=== PATIENT | female | born 1945 | race Caucasian/White ===

== ENCOUNTER 2016-10-03 10:31 | Inpatient (IN) | payer OTHER, MEDICARE ==
[~2016-10-03] VITALS: Ht 157.5 cm; Wt 49.0 kg
[~2016-10-03 10:31] MED LIST: LISINOPRIL-HCT1 EAC2 PO; PAROXETINE HCL20 M1 PO; SIMVASTATIN40 M1 PO
[2016-10-03 11:35] LABS: ABSOLUTE BASOPHIL COUNT 0.1 /CUMM (0.0-0.2); ABSOLUTE EOSINOPHIL COUNT 0.1 /CUMM (0.0-0.7); ABSOLUTE GRANULOCYTE CT 3.3 /CUMM (1.4-6.5); ABSOLUTE LYMPH COUNT 1.6 /CUMM (1.2-3.4); ABSOLUTE MONOCYTE COUNT 0.4 /CUMM (0.10-0.60); BASOPHIL % 1.5 % (0.0-2.0); EOSINOPHIL % 1.8 % (0-5); GRANULOCYTE % 59.1 % (42.2-75.2); MEAN CORPUSCULAR HGB 30.3 PG (27.0-31.0); MEAN CORPUSCULAR HGB CONC 33.3 G/DL (33.0-37.0); MEAN CORPUSCULAR VOLUME 91.1 FL (81.0-99.0); PLATELET COUNT 178 /CUMM (130-400); RED BLOOD CELL CT 4.07 /CUMM (4.20-5.40); WHITE BLOOD CELL COUNT 5.5 /CUMM (4.8-10.8)
--- NOTE | 2016-10-03 11:40 | CT SCAN REPORT ---
EXAMINATION: CT HEAD WITHOUT CONTRAST CLINICAL INFORMATION: Altered mental status. COMPARISON: MRI brain dated 06/17/2016. TECHNIQUE: Contiguous axial imaging was performed from the skull base to vertex without intravenous administration of contrast. DLP: 600.71 mGy-cm FINDINGS: There is no intracranial hemorrhage. There is no evidence of acute/subacute cerebral or cerebellar infarction. There is a moderate degree of microvascular ischemic change. There is no midline shift. There is a large arachnoid cyst measuring up to 4.5 cm within the right middle cranial fossa. There is disproportionate enlargement of the ventricular system in relation to the degree of sulcal enlargement. Normal pressure hydrocephalus should be considered in the correct clinical setting. The orbits are unremarkable. The paranasal sinuses and mastoid air cells are clear. IMPRESSION: 1. No acute intracranial hemorrhage. 2. No evidence of acute/subacute cerebral or cerebellar infarction. 3. Moderate microvascular ischemic disease. 4. Disproportionate enlargement of the ventricular system in relation to the degree of sulcal enlargement suggesting the presence of normal pressure hydrocephalus. Clinical correlation is recommended.
[2016-10-03 11:56] LABS: PT 10.2 SEC (9.4-12.5); PTT 30 SEC (25-37)
--- NOTE | 2016-10-03 13:10 | ED GENERAL ADULT ---
History of Present Illness General Chief Complaint: Altered Mental Status Stated Complaint: AMS Source: patient Exam Limitations: confusion Vital Signs & Intake/Output Vital Signs & Intake/Output Vital Signs Date Time Temp Pulse Resp B/P Pulse O2 O2 Flow FiO2 Ox Delivery Rate 10/03 2030 Room Air 10/03 1644 Room Air 10/03 1625 98.3 68 18 128/82 99 Room Air 10/03 1419 98.0 60 18 136/62 100 Room Air 10/03 1254 97.9 58 18 127/59 100 Nasal 2.0L Cannula 10/03 1154 96 Room Air 10/03 1040 97.8 71 18 132/81 100 Room Air Allergies Coded Allergies: No Known Drug Allergies (10/03/16) Reconcile Medications Donepezil HCl (Donepezil HCl Odt) 10 MG TAB.RAPDIS 10 MG PO DAILY MOOD STABILITY (Reported) Lisinopril/Hydrochlorothiazide (Lisinopril-Hctz 10-12.5 MG Tab) 10 MG-12.5 MG TABLET 1 TAB PO DAILY BP (Reported) Paroxetine HCl 20 MG TABLET 1 TAB PO DAILY MENTAL HEALTH (Reported) Simvastatin (Simvastatin*) 40 MG TABLET 1 TAB PO QPM CHOLESTEROL (Reported) Triage Note: PER , PT C/O DIZZINESS WITH DIFFICULTY WALKING, WITH SLOW SPEECH. SXS STARTED 1 HOUR AGO. PER SON, PT HAD A LUMBAR PUNCTURE LAST WEEK, UNDERGOING EVALUATION FOR ALZHEIMERS OR HIGH PRESSURE HYDROCEPHALUS. PT ALERT, SPEECH SLOW, SLURRED AT TIMES. PRESSURE Triage Nurses Notes Reviewed? yes HPI: 10/03/16 1 PM 71-year-old male presents to the emergency department complaining of a aphasia altered mental status and slumping over to the side. According to the family earlier today the patient was at the [facility] and she became unresponsive and had slurred speech facial asymmetry and slumped over to the side. The symptoms lasted approximately half hour period, here in the emergency Department the symptoms have completely resolved. Now according to the family she is 100% back to baseline. She does have a history of normal pressure hydrocephalus. She status post lumbar puncture with dramatic improvement of her symptoms. She also has dementia. The onset of the symptoms was abrupt, the duration was just earlier today, the severity was significant; as her symptoms required to come to the emergency department for care. On physical examination she has a gag reflex she is awake alert and oriented 3. She has no focal weakness. Past History Travel History Traveled to [place] past 21 day No Medical History Any Pertinent Medical History? see below for history Neurological: normal pressure hydrocephalus Cardiovascular: hypertension, hyperlipidemia Psychiatric: depression Surgical History Surgical History: non-contributory Psychosocial History What is your primary language Bulgarian Tobacco Use: Current Daily Use Daily Tobacco Use Amount/Type: =< 4 Cigarettes daily ETOH Use: denies use Illicit Drug Use: denies illicit drug use Family History Hx Contributory? No Review of Systems Review of Systems Constitutional: Denies: fever. EENTM: Denies: visual changes. Respiratory: Denies: short of breath. Cardiovascular: Denies: chest pain. GI: Denies: abdominal pain. Genitourinary: Reports: no symptoms. Musculoskeletal: Reports: no symptoms. Skin: Reports: no symptoms. Neurological/Psychological: Reports: see HPI. Hematologic/Endocrine: Denies: bleeding. Physical Exam Physical Exam General Appearance: alert, awake, anxious, mild distress Head: atraumatic, normal appearance Eyes: Bilateral: normal appearance, PERRL, EOMI. Ears, Nose, Throat: normal pharynx, normal ENT inspection Neck: normal inspection, supple Respiratory: normal breath sounds, chest non-tender, no respiratory distress Cardiovascular: regular rate/rhythm Peripheral Pulses: 4+ radial (R), 4+ radial (L) Gastrointestinal: non-tender Back: decreased range of motion Extremities: pedal edema Neurologic/Psych: awake, alert, oriented x 3 Skin: intact, normal color, warm/dry Core Measures ACS in differential dx? No CVA/TIA Diagnosis: No Severe Sepsis Present: No Septic Shock Present: No Progress Differential Diagnoses I considered the following diagnoses in my evaluation of the patient: [CVA, TIA, sepsis, normal pressure hydrocephalus, intracranial bleed] Plan of Care: Orders Procedure Date/time Status Heart Healthy Diet 10/03 D Active TROPONIN LEVEL 10/03 2335 Active EKG 10/03 2335 Active THERAPIST ORDERS 10/03 2033 Complete RT: Evaluation 10/03 2030 Active TROPONIN LEVEL 10/03 1735 Complete EKG 10/03 1735 Active Vital Signs 10/03 162 Active Teach/Educate 10/03 162 Active Pain Treatment and Response 10/03 162 Active Nutritional Intake, Monitor 10/03 162 Active Isolation 10/03 162 Active Intake & Output 10/03 1624 Active Patient Care Conference 10/03 1624 Active Activity/Ambulation 10/03 1624 Active Code Status 10/03 1446 Active Lab Add-on Test 10/03 1322 Active Lab Add-on Test 10/03 1321 Active ECHOCARDIOGRAM 10/03 1321 Active TRC EVALUATION (GEN) 10/03 1317 Complete OXYGEN SETUP (GEN) 10/03 1317 Active Pathway - chart 10/03 1317 Active House Staff 10/03 1317 Active Patient Data 10/03 1317 Active Admit to inpatient 10/03 1308 Active Vital Signs 10/03 1308 Active Code Status 10/03 1308 Complete Patient Data 10/03 1242 Active THYROID STIMULATING HORMONE 10/03 1125 Complete TROPONIN LEVEL 10/03 1125 Complete FREE T4 10/03 1125 Complete VITAMIN B12 10/03 1125 Complete URINALYSIS 10/03 1053 Complete PARTIAL THROMBOPLASTIN TIME 10/03 1053 Complete PROTHROMBIN TIME 10/03 1053 Complete LACTIC ACID 10/03 1053 Complete CBC WITHOUT DIFFERENTIAL 10/03 1053 Complete BASIC METABOLIC PANEL 10/03 1053 Complete NIH Stroke Scale 10/03 1052 Active EKG 10/03 1051 Active SWALLOW EVALUATION 10/03 UNK Active PT Evaluate & Treat 10/03 UNK Active Therapeutic Activities 10/03 UNK Complete PT EVAL LOW COMPLEX 20 MIN 10/03 UNK Complete Gait Training 10/03 UNK Complete Occupational Tx Eval & Treat 10/03 UNK Active VTE Mechanical Prophylaxis 10/03 UNK Active Vital Signs 10/03 UNK Complete MISTAKE 10/03 UNK Active Telemetry/Eligibility Technician 10/03 UNK Active NIH Stroke Scale 10/03 UNK Active Intake & Output 10/03 UNK Active ELECTROENCEPHALOGRAM 10/03 UNK Active Current Medications Sig/Monica Start time Last Medication Dose Stop Time Status Admin Aspirin 81 MG DAILY 10/04 1000 AC (Aspirin) Laboratory Tests 10/03/16 1740: Troponin I < 0.01 10/03/16 1353: Lactic Acid Cancelled 10/03/16 1223: Urine Color YEL, Urine Clarity CLEAR, Urine pH 6.0, Ur Specific [place] 1.025, Urine Protein TRACE H, Urine Ketones NEG, Urine Nitrite NEG, Urine Bilirubin NEG, Urine Urobilinogen 0.2, Ur Leukocyte Esterase SMALL H, Ur Microscopic SEDIMENT EXAMINED, Urine RBC 1-3, Urine WBC RARE, Ur Epithelial Cells FEW, Urine Bacteria FEW H, Urine Hemoglobin NEG, Urine Glucose NEG 10/03/16 1125: Anion Gap 7, Estimated GFR > 60, BUN/Creatinine Ratio 10.0, Glucose 94, Lactic Acid 0.9, Calcium 9.3, Troponin I < 0.01, Vitamin B12 > 1000 H, TSH 1.480, Free T4 0.96, PT 10.2, INR 0.97, APTT 30, CBC w Diff NO MAN DIFF REQ, RBC 4.07 L, MCV 91.1, MCH 30.3, RDW 13.0, MPV 9.0, Gran % 59.1, Lymphocytes % 29.5, Monocytes % 8.1, Eosinophils % 1.8, Basophils % 1.5, Absolute Granulocytes 3.3, Absolute Lymphocytes 1.6, Absolute Monocytes 0.4, Absolute Eosinophils 0.1, Absolute Basophils 0.1, PUBS MCHC 33.3 CT scan of the head showing below- PATIENT: KAITLYN MCGRAW PRESENT AGE: 71 PATIENT ACCOUNT NO: [id number] : 46 LOCATION: [facility] ORDERING PHYSICIAN: JERRICA CINTRON DO SERVICE DATE: 10/03/16105 EXAM TYPE: CAT - CT HEAD WO IV CONTRAST EXAMINATION: CT HEAD WITHOUT CONTRAST CLINICAL INFORMATION: Altered mental status. COMPARISON: MRI brain dated 06/17/2016. TECHNIQUE: Contiguous axial imaging was performed from the skull base to vertex without intravenous administration of contrast. DLP: 600.71 mGy-cm FINDINGS: There is no intracranial hemorrhage. There is no evidence of acute/subacute cerebral or cerebellar infarction. There is a moderate degree of microvascular ischemic change. There is no midline shift. There is a large arachnoid cyst measuring up to 4.5 cm within the right middle cranial fossa. There is disproportionate enlargement of the ventricular system in relation to the degree of sulcal enlargement. Normal pressure hydrocephalus should be considered in the correct clinical setting. The orbits are unremarkable. The paranasal sinuses and mastoid air cells are clear. IMPRESSION: 1. No acute intracranial hemorrhage. 2. No evidence of acute/subacute cerebral or cerebellar infarction. 3. Moderate microvascular ischemic disease. 4. Disproportionate enlargement of the ventricular system in relation to the degree of sulcal enlargement suggesting the presence of normal pressure hydrocephalus. Clinical correlation is recommended. DICTATED BY: CHAR VELASQUEZ MD DATE/TIME DICTATED:10/03/161126 CLEANER GREASER:ADRIENNE DATE/TIME TRANSCRIBED:10/03/161126 CONFIDENTIAL, DO NOT COPY WITHOUT APPROPRIATE AUTHORIZATION. <Electronically signed in Other Vendor System> SIGNED BY: CHAR VELASQUEZ MD 10/03/16 1140 (JERRICA CINTRON DO) Initial ED EKG: NSR, nonspecific ST T wave chg Departure Departure Disposition: STILL A PATIENT Condition: Stable Clinical Impression Primary Impression: TIA (transient ischemic attack) Secondary Impressions: Normal pressure hydrocephalus Referrals: Lisa GAONA MD (PCP/Family) Departure Forms: Customer Survey General Discharge Information Comments The patient was admitted to the hospital for further care. She had a gag reflex and tolerated water. Admission Note Spoke With: RAHUL GUERRERO MD Documentation of Exam: Documentation of any treatments & extenuating circumstances including Concerns Regarding Discharge (functional status, medication knowledge or non-compliance, living conditions, etc.) that warrant an admission rather than observation: [The patient needs admission for telemetry monitoring, neuro checks every 6 hours, neurology consultation] Critical Care Note Critical Care Note Critical Care Time: 30-74 min
[2016-10-03] MEDS ORDERED: DONEPEZIL HCL O10 MG PO (13:22)
--- NOTE | 2016-10-03 13:24 | History & Physical ---
SCARLETT VILLARREAL MD 10/03/16 1324: General Information and HPI MD Statement: I have seen and personally examined KAITLYN MCGRAW and documented this H&P. The patient is a 71 year old F who presented with a patient stated chief complaint of [incoherent,can't walk,hand contractures for 30-45mins]. Source of Information: patient, family Exam Limitations: no limitations History of Present Illness: 71-year-old female with PMH of hypertension, hyperlipidemia, depression, dementia, enlarged ventricles, ?normal pressure hydrocephalus, presented for worsening neurological symptoms. She was running errand with her at the grocery store this morning, when her speech was noted to be incoherent, she wasn 't able to walk, her hands were fixed in a contracted position, with a "zombie look" staring in space. The episode lasted for about 30-45 minutes and resolved spontaneously. She did not lose consciousness and no seizure like activities noted. At baseline, she has slurred speech and gait problem (shuffling gait, usually leaning to the left), and she walks independently without cane/walker. Over the last 2 years, she has seemed more down (she is chatty prior to that), which has been attributed to dementia by Dr. Rutherford. She has been following up with Dr. Martinez for possible normal pressure hydrocephalus. She had lumbar puncture 2 weeks ago and she reportedly was walking better and more chatty, more like her prior self. We obtained request for records from Dr. Martinez office in [place]. Family still awaiting to hear back from his office whether or not they will pursue a PATTERN KEEPER shunt. The has noted that pt has had 2 episodes of urinary incontinence in the last 2 months. Currently, the pt is at her recent baseline. No focal deficits can be found on our examination. She was oriented to place, time, and person. Passed bedside swallow evaluation. Allergies/Medications Allergies: Coded Allergies: No Known Drug Allergies (10/03/16) Home Med list Donepezil HCl (Donepezil HCl Odt) 10 MG TAB.RAPDIS 10 MG PO DAILY MOOD STABILITY (Reported) Lisinopril/Hydrochlorothiazide (Lisinopril-Hctz 10-12.5 MG Tab) 10 MG-12.5 MG TABLET 1 TAB PO DAILY BP (Reported) Paroxetine HCl 20 MG TABLET 1 TAB PO DAILY MENTAL HEALTH (Reported) Simvastatin (Simvastatin*) 40 MG TABLET 1 TAB PO QPM CHOLESTEROL (Reported) Past History Travel History Traveled to [place] past 21 day No Medical History Cardiovascular: hypertension, hyperlipidemia Psychiatric: depression Surgical History Surgical History: non-contributory Past Family/Social History Psychosocial History Where do you live? Home Who Do You Live With? spouse ETOH Use: denies use Illicit Drug Use: denies illicit drug use Functional Ability Ambulation: independent Review of Systems Review of Systems Constitutional: Denies: chills, fever. EENTM: Denies: visual changes. Cardiovascular: Denies: chest pain, palpitations. Respiratory: Denies: cough, short of breath. GI: Denies: abdominal pain, constipation, diarrhea. Genitourinary: Denies: dysuria. Exam & Diagnostic Data Last 24 Hrs of Vital Signs/I&O Vital Signs Date Time Temp Pulse Resp B/P Pulse O2 O2 Flow FiO2 Ox Delivery Rate 10/03 1419 98.0 60 18 136/62 100 Room Air 10/03 1254 97.9 58 18 127/59 100 Room Air 10/03 1154 96 Room Air 10/03 1040 97.8 71 18 132/81 100 Room Air Intake & Output 10/03 1600 10/03 0800 10/03 0000 Intake Total Output Total Balance Patient 79.7 kg Weight Physical Exam General Appearance Alert, Oriented X3, Cooperative, No Acute Distress Skin No Significant Lesion HEENT Atraumatic, EOMI, Mucous Membr. moist/pink, pupils equally round and reactive Neck Supple, No JVD, +2 Carotid Pulse wo Bruit Cardiovascular Regular Rate, Normal S1, Normal S2, No Murmurs, Gallops, Rubs Lungs Clear to Auscultation, Normal Air Movement Abdomen Normal Bowel Sounds, Soft, No Tenderness Neurological Normal Speech, Normal Tone, Sensation Intact, Cranial Nerves 3-12 NL, strength 4/5 all 4 limbs Extremities No Edema, Normal Pulses Last 24 Hrs of Labs/Rodo: Laboratory Tests 10/03/16 1353: Lactic Acid Cancelled 10/03/16 1223: Urine Color YEL, Urine Clarity CLEAR, Urine pH 6.0, Ur Specific [place] 1.025, Urine Protein TRACE H, Urine Ketones NEG, Urine Nitrite NEG, Urine Bilirubin NEG, Urine Urobilinogen 0.2, Ur Leukocyte Esterase SMALL H, Ur Microscopic SEDIMENT EXAMINED, Urine RBC 1-3, Urine WBC RARE, Ur Epithelial Cells FEW, Urine Bacteria FEW H, Urine Hemoglobin NEG, Urine Glucose NEG 10/03/16 1125: Anion Gap 7, Estimated GFR > 60, BUN/Creatinine Ratio 10.0, Glucose 94, Lactic Acid 0.9, Calcium 9.3, Troponin I < 0.01, Vitamin B12 > 1000 H, TSH 1.480, Free T4 0.96, PT 10.2, INR 0.97, APTT 30, CBC w Diff NO MAN DIFF REQ, RBC 4.07 L, MCV 91.1, MCH 30.3, RDW 13.0, MPV 9.0, Gran % 59.1, Lymphocytes % 29.5, Monocytes % 8.1, Eosinophils % 1.8, Basophils % 1.5, Absolute Granulocytes 3.3, Absolute Lymphocytes 1.6, Absolute Monocytes 0.4, Absolute Eosinophils 0.1, Absolute Basophils 0.1, PUBS MCHC 33.3 Diagnostic Data EKG Results NSR 59. QTc 452. T wave flattening v3 and v4 Other Results 1. No acute intracranial hemorrhage. 2. No evidence of acute/subacute cerebral or cerebellar infarction. 3. Moderate microvascular ischemic disease. 4. Disproportionate enlargement of the ventricular system in relation to the degree of sulcal enlargement suggesting the presence of normal pressure hydrocephalus. Clinical correlation is recommended. Assessment/Plan Assessment: 71-year-old female with PMH of hypertension, hyperlipidemia, depression, dementia, enlarged ventricles, ?normal pressure hydrocephalus, presented for worsening neurological symptoms (incoherent speech, wasn't able to walk, her hands were fixed in a contracted position, with staring in space, lasting 30-45 minutes and resolved spontaneously), currently at baseline without focal neurological findings. CT revealed no hemorrhage/acute infarct and had findings suggestive of NPH. # Possible TIA vs NPH - Requested records from Dr. Martinez's office - CT: No acute intracranial hemorrhage. No evidence of acute/subacute cerebral or cerebellar infarction. Moderate microvascular ischemic disease. Disproportionate enlargement of the ventricular system in relation to the degree of sulcal enlargement suggesting the presence of normal pressure hydrocephalus. Clinical correlation is recommended. - Carotid: Occluded left internal carotid artery and findings on the right consistent with a 50-79% diameter reduction involving the proximal right internal carotid artery. - MRI: There is high signal on the diffusion-weighted images which is isointense on the ADC map involving the left temporal lobe, and without significant mass effect, suggesting subacute ischemia in this locale. Dilatation of the lateral and third ventricles slightly out of proportion to the sulcal prominence is stable with respect to 06/17/2016 as is the T2 prolongation along the lateral ventricular margins. Stable right middle cranial fossa arachnoid cyst with surrounding gliotic change in the right temporal lobe. 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 * Admitted to telemetry * Carotid US * MRI head * EEG * Echo * Neuro consult * Cardio consult * Vascular surgery consult. I spoke to Dr. Abdalla over the phone, she recommended getting CTA of the neck and update her at [phone]. * Serial EKG and trop * Aspirin started * Atorvastatin 80 mg started (was on home simvastatin 40) * Contact daughterLisa, to update # Continue home meds Lisinopril 10 HCTZ 12.5 Paroxetine 20 Donepezil Diet: heart healthy DVT ppx: mech and pharm FULL CODE As Ranked By This Provider Problem List: 1. TIA (transient ischemic attack) Core Measures/Miscellaneous Acute Coronary Syndrome ACS Diagnosis: No Cerebrovascular Accident CVA/TIA Diagnosis: Yes NIH Stroke Scale: Total 0 Date Last Known Well: 10/03/16 Time Last Known Well: 929 Neurological S/S of CVA: Difficulty Speaking, Doesn't Walk, Incoherent Speech Symptom Start Date: 10/03/16 Symptom Start Time: 929 Reason tPA not ordered Medical Contraindication Bedside Swallow Eval Done: Yes Result of Evaluation: Pass Days in Hospital: 1 Antithrombotic: Yes AFIB: No Aflutter: No Anticoagulant: Yes Evidence of Atherosclerosis: Yes LDL Assessed Within 24 Hours: Yes Currently on Statin: Yes Rehab Needs Assessed: Medical Eval for Rehab PT Consult Ordered: Yes Congestive Heart Failure CHF Diagnosis: No Venous Thromboembolism VTE Risk Factors: Acute medical illness, Age > 40 No [facility] VTE prophylaxis d/t: No contraindications No VTE Pharm Prophylaxis d/t: No contraindications VTE Diagnosis: No VTE Type: NONE VTE Confirmed by (Test): NONE Severe Sepsis Severe Sepsis Present: No Septic Shock Septic Shock Present: No Miscellaneous Documentation Attending Case Discussed With: RAHUL GUERRERO MD Primary Care Physician: JIMENEZ ORTIZ,MRizwan KRANTHI Patient sees these Specialists Dr Martinez neurology Level of Patient Care: Telemetry YOLANDA ORTIZWILIAMDREAD 10/03/16 1530: Attending MD Review Statement Attending Statement Attending MD Statement: examined this patient, discuss w/resident/PA/CONTROL TECHNICIAN, agreed w/resident/PA/CONTROL TECHNICIAN, reviewed EMR data (avail) Attending Assessment/Plan: 71F PMH HTN, HLD, normal pressure hydrocephalus s/p serial LPs presenting with 30 minute episode of aphasia, muscle contracture, and confusion. Patient is back to baseline currently. Poor memory of incident. No similar prior incidents. Neurological exam unremarkable. Plan - Admit to telemetry - Neurology consult - MRI head - EEG - ASA and statin - Carotid doppler - Echocardiogram - Continue home medications - Cardiology consult (T-wave inversions on EKG, new, but last EKG was from 2003) - DVT PPx RIGO CONWAY 10/03/16 1746: Resident Review Statement Resident Statement: examined this patient, discussed with internal medicine nurse, agreed with internal medicine nurse, discussed with family, reviewed images Other Findings: This is a 71-year-old lady with past medical history significant for normal pressure hydrocephalus,hyperlipidemia, hypertension, Alzheimer's dementia who was brought to the hospital after having an episode of altered mental status earlier today around 9-10:30 AM. Of note family who are present at bedside mention that patient has problem with balance and slurred speech at baseline. Please see above for more details. VS: T: 97.8 [place]:71 RR: 18 BP: 132/81 O2 sat 100% Room Air PH/EX: AAOx2(Person and place but not time), NAD HEENT: NCAT, EOMI, PERRLA, NL fundoscopy, no nystagmus, uvula midline, tongue midline. Neck: Supple, no JVD, no carotid bruits. CV: RRR, no murmur. Lungs: CTAL. Abd: Soft, Nl BS, NT , ND. Ext: No edema, pulse and reflexes NL any symm. Neuro: CN 3-12 intact, finger to nose intact. Tone, strenght and reflexes intact. Passed bedside swallow eval. Availables and Dx data reviewed. CT: Neg MRI: Left temporal lobe infarct. Carotid doppler:Occluded left internal carotid artery and findings on the right consistent with a 50-79% diameter reduction involving the proximal right internal carotid artery. EKG: NSR 59. T wave inversion v3-v6. Problem list: #Acute CVA #H/O NPH #Abnl EKG Plan: * ekg monitor tech * Orthostatics and vitals * EEG * R/o ACS w/troponin and EKG * Echo * TSH, Vit B12, lipid panel. * Will start the patient on ASA and high dose statin * Will hold [employer] antihypertensives for permessive HTN. If BP drops below sys 130s -140s consider IV fluid Tx to maitain BP * Vascular consult regarding carotid doppler findings * Cardio and neuro consult * Formal swallow evaluation test * PT/OT/Speech Tx * DVT PPX: SC heparin * Full code * Patient is pain free at the moment. If develops any pain would evaluate and start approprite pain management medication.
--- NOTE | 2016-10-03 15:33 | Admission Certification ---
Admission Certification Certification Statement - As attending physician, I certify that at the time of - admission, based on clinical presentation, severity of - symptoms, need for further diagnostic testing and - therapeutic interventions, and risk of adverse outcomes - without in-hospital treatment, in my clinical assessment, - this patient requires an acute hospital stay for a minimum - of two nights or longer. I have also considered psychsocial - factors such as support system, advanced age, financial - issues, cognitive issues, and failed out-patient treatments, - past re-admission history, safety of patient, and lack of - compliance as applicable. Specific rationale supporting this admission is: Stroke vs seizure in a patient with normal pressure hydrocephalus
--- NOTE | 2016-10-03 16:16 | ULTRASOUND REPORT ---
EXAMINATION: DUPLEX BILATERAL CAROTID ULTRASOUND CLINICAL INFORMATION: Altered mental status with dysphasia and difficulty walking. COMPARISON: None. TECHNIQUE: Duplex bilateral carotid US was performed using real-time ultrasound and Doppler techniques (integrating B-mode 2D vascular images, Doppler spectral analysis and color flow Doppler imaging). These techniques were utilized to interrogate the extracranial carotid and vertebral arteries bilaterally. The degree of stenosis is based off criteria similar to NASCET. FINDINGS: 1. On the right: There is a hemodynamically significant stenosis correlating to 50-79% diameter reduction of the proximal internal carotid artery. A moderate amount of hyperechoic plaque is noted at the bifurcation extending into the proximal internal carotid artery. The peak systolic and diastolic velocities as measured within the proximal internal carotid artery equals 267 and 31.4 cm/s respectively. The vertebral artery is patent demonstrating antegrade flow. The right ECA demonstrates a severe stenosis with peak systolic velocity of 382 cm/s. 2. On the left: There is what appears to be complete occlusion of the internal carotid artery as no flow is detected. A large amount of hyperechoic plaque is noted at the bifurcation extending into the proximal internal carotid artery.. The vertebral artery is patent demonstrating antegrade flow. The left ECA demonstrates a marked stenosis with peak systolic velocity of under 291 cm/s. IMPRESSION: Occluded left internal carotid artery and findings on the right consistent with a 50-79% diameter reduction involving the proximal right internal carotid artery. This critical result was discussed with Dr. Brandon Roberts at 4:10 PM on the day the exam and it was ascertained that the content and urgency of the report was understood at the time of direct communication.
[2016-10-03 16:25] VITALS: BP 128/82
--- NOTE | 2016-10-03 16:40 | MRI REPORT ---
EXAMINATION: MR BRAIN WITHOUT CONTRAST CLINICAL INFORMATION: Hypertension. Hyperlipidemia. COMPARISON: Head CT from 10/03/2016. MRI of the brain from 06/17/2016. TECHNIQUE: MRI of the brain without contrast was obtained using routine sequences. FINDINGS: The images are quite motion degraded. There is platelike high signal with faint associated T2 prolongation involving the left temporal lobe cortex (see for example series 4 images 54 through 56). This appears fairly isointense on the ADC map. There is no significant mass effect. There is no susceptibility artifact on the gradient recalled echo sequence to suggest acute or chronic blood products. There is prominence of the lateral and third ventricles, which is similar in comparison to 06/17/2016. For example the transverse dimension of the anterior third ventricle measures 1.3 cm, unchanged. There is mild to moderate T2 prolongation in the periventricular white matter surrounding both lateral ventricles, also stable. There is some patchy right parasagittal pontine T2 prolongation, also stable. A large CSF signal structure within the right middle cranial fossa is redemonstrated measuring 4.2 x 4.0 cm compatible with an arachnoid cyst. There is surrounding T2 prolongation in the right temporal white matter compatible with gliotic change and stable. No extra-axial collections along the convexities. No shift of the normally midline structures. There is chronic loss of the left internal carotid artery flow-void. Otherwise the major intracranial flow voids appear preserved. The craniocervical junction and supersellar region appear unremarkable. Marrow signal is preserved. No upper cervical adenopathy. Mild mucosal thickening in the ethmoid air cells. IMPRESSION: There is high signal on the diffusion-weighted images which is isointense on the ADC map involving the left temporal lobe, and without significant mass effect, suggesting subacute ischemia in this locale. Dilatation of the lateral and third ventricles slightly out of proportion to the sulcal prominence is stable with respect to 06/17/2016 as is the T2 prolongation along the lateral ventricular margins. Stable right middle cranial fossa arachnoid cyst with surrounding gliotic change in the right temporal lobe. 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
--- NOTE | 2016-10-03 17:12 | Cons- Neurology ---
General Information and HPI Consulting Request Date of Consult: 10/03/16 Requested By: RAHUL GUERRERO MD Reason for Consult: Sudden alteration in mental status Source of Information: family, resident physician Exam Limitations: unable to give history, dementia History of Present Illness: 71-year-old woman with no known history of stroke or TIA but with dementia reportedly of Alzheimer's type plus normal pressure hydrocephalus was shopping with her this morning. Sudden blank stare, eyes remained open, not responding verbally. No diaphoresis or pallor, no tremor or seizure activity. No obvious focal signs although according to the she needed assistance walking and may been favoring the right leg. Duration was overall about half an hour. Significant improvement in mental status about 2 weeks ago on lumbar puncture at associated [facility]ists in [place]. The patient cannot give useful information about today's event for her medical history in general due to her dementia Allergies/Medications Allergies: Coded Allergies: No Known Drug Allergies (10/03/16) Home Med List: Donepezil HCl (Donepezil HCl Odt) 10 MG TAB.RAPDIS 10 MG PO DAILY MOOD STABILITY (Reported) Lisinopril/Hydrochlorothiazide (Lisinopril-Hctz 10-12.5 MG Tab) 10 MG-12.5 MG TABLET 1 TAB PO DAILY BP (Reported) Paroxetine HCl 20 MG TABLET 1 TAB PO DAILY MENTAL HEALTH (Reported) Simvastatin (Simvastatin*) 40 MG TABLET 1 TAB PO QPM CHOLESTEROL (Reported) Current Medications: Current Medications Sig/Monica Start time Last Medication Dose Route Stop Time Status Admin Aspirin 0 .STK-MED ONE 10/03 1423 DC PO Aspirin 325 MG DAILY 10/03 1400 AC 10/03 PO 1427 Atorvastatin Calcium 80 MG 1700 10/03 1700 AC PO Donepezil HCl 10 MG DAILY 10/03 1422 AC PO Hydrochlorothiazide 12.5 MG DAILY 10/03 1424 AC PO Lisinopril 10 MG DAILY 10/03 1423 AC PO Paroxetine HCl 20 MG DAILY 10/03 1423 AC PO Review of Systems Review of Systems: Limited due to her dementia, she denied headache chest pain or shortness of breath. She denied problems with vision. Could not complete full 12 system ROS Past History Travel History Traveled to [place] past 21 day No Medical History Blood Transfusion Hx: No Cardiovascular: hypertension, hyperlipidemia Psychiatric: depression Surgical History Surgical History: non-contributory Psychosocial History Where Do You Live? Home Who Do You Live With? spouse Smoking Status: Current Everyday Smoker ETOH Use: denies use Illicit Drug Use: denies illicit drug use Functional Ability Ambulation: independent Exam & Diagnostic Data Vital Signs and I&O Vital Signs Date Time Temp Pulse Resp B/P Pulse O2 O2 Flow FiO2 Ox Delivery Rate 10/03 1644 Room Air 10/03 1625 98.3 68 18 128/82 99 Room Air 10/03 1419 98.0 60 18 136/62 100 Room Air 10/03 1254 97.9 58 18 127/59 100 Nasal 2.0L Cannula 10/03 1154 96 Room Air 10/03 1040 97.8 71 18 132/81 100 Room Air Intake & Output 10/03 1600 10/03 0800 10/03 0000 Intake Total Output Total Balance Patient 176 lb Weight Physical Exam: On exam the patient appeared generally well and in no distress. No carotid bruits and no cardiac murmur. No peripheral edema Mental status: Awake, somewhat slow to respond to questions, sometimes needed to repeat. Oriented to name and [place]. Able to name one president. Names 2 of 3 simple objects,called a laboy a lock Funduscopic non-cooperative Visual burk full to finger count, Eye movements full without nystagmus, pupils midsize equal round and reactive to light. Facial movement normal bilaterally Facial sensation normal bilaterally Hearing may be reduced, needed to repeat questions Uvula elevates midline Tongue protrusion is midline Shoulder shrug symmetric Motor Strong bilaterally, no drift, leg movement symmetric and grossly normal Tone normal in the upper extremities Sensation intact to primary modes Tendon reflexes normal and symmetric without pathologic signs Coordination no gross ataxia Gait [testing deferred][normal] Last 48 Hours of Lab Results: Laboratory Tests 10/03 10/03 1353 1223 Chemistry Lactic Acid Cancelled Urines Urine Color (YEL,AMB,STR) YEL Urine Clarity (CLEAR) CLEAR Urine pH (5.0 - 8.0) 6.0 Ur Specific [place] (1.001 - 1.035) 1.025 Urine Protein (NEG,<30 MG/DL) TRACE H Urine Ketones (NEG) NEG Urine Nitrite (NEG) NEG Urine Bilirubin (NEG) NEG Urine Urobilinogen (0.1 - 1.0 EU/dl) 0.2 Ur Leukocyte Esterase (NEG) SMALL H Ur Microscopic SEDIMENT EXAMINED Urine RBC (0 - 5 /HPF) 1-3 Urine WBC (0 - 2 /HPF) RARE Ur Epithelial Cells (NONE,FEW) FEW Urine Bacteria (NEG/NONE) FEW H Urine Hemoglobin (NEG) NEG Urine Glucose (N MG/DL) NEG 10/03 1125 Chemistry Sodium (137 - 145 mmol/L) 139 Potassium (3.5 - 5.1 mmol/L) 3.7 Chloride (98 - 107 mmol/L) 99 Carbon Dioxide (22 - 30 mmol/L) 34 H Anion Gap (5 - 16) 7 BUN (7 - 17 mg/dL) 9 Creatinine (0.5 - 1.0 mg/dL) 0.9 Estimated GFR (>60 ml/min) > 60 BUN/Creatinine Ratio (7 - 25 %) 10.0 Glucose (65 - 99 mg/dL) 94 Lactic Acid (0.7 - 2.1 mmol/L) 0.9 Calcium (8.4 - 10.2 mg/dL) 9.3 Troponin I (< 0.11 ng/ml) < 0.01 Vitamin B12 (239 - 931 pg/mL) > 1000 H TSH (0.270 - 4.200 uIU/mL) 1.480 Free T4 (0.78 - 2.44 ng/dL) 0.96 Coagulation PT (9.4 - 12.5 SEC) 10.2 INR (0.90 - 1.19) 0.97 APTT (25 - 37 SEC) 30 Hematology CBC w Diff NO MAN DIFF REQ WBC (4.8 - 10.8 /CUMM) 5.5 RBC (4.20 - 5.40 /CUMM) 4.07 L Hgb (12.0 - 16.0 G/DL) 12.3 Hct (37 - 47 %) 37.0 MCV (81.0 - 99.0 FL) 91.1 MCH (27.0 - 31.0 PG) 30.3 RDW (11.5 - 14.5 %) 13.0 Plt Count (130 - 400 /CUMM) 178 MPV (7.4 - 10.4 FL) 9.0 Gran % (42.2 - 75.2 %) 59.1 Lymphocytes % (20.5 - 51.1 %) 29.5 Monocytes % (1.7 - 9.3 %) 8.1 Eosinophils % (0 - 5 %) 1.8 Basophils % (0.0 - 2.0 %) 1.5 Absolute Granulocytes (1.4 - 6.5 /CUMM) 3.3 Absolute Lymphocytes (1.2 - 3.4 /CUMM) 1.6 Absolute Monocytes (0.10 - 0.60 /CUMM) 0.4 Absolute Eosinophils (0.0 - 0.7 /CUMM) 0.1 Absolute Basophils (0.0 - 0.2 /CUMM) 0.1 PUBS MCHC (33.0 - 37.0 G/DL) 33.3 Imaging/Other Studies: dopplers: FINDINGS: 1. On the right: There is a hemodynamically significant stenosis correlating to 50-79% diameter reduction of the proximal internal carotid artery. A moderate amount of hyperechoic plaque is noted at the bifurcation extending into the proximal internal carotid artery. The peak systolic and diastolic velocities as measured within the proximal internal carotid artery equals 267 and 31.4 cm/s respectively. The vertebral artery is patent demonstrating antegrade flow. The right ECA demonstrates a severe stenosis with peak systolic velocity of 382 cm/s. 2. On the left: There is what appears to be complete occlusion of the internal carotid artery as no flow is detected. A large amount of hyperechoic plaque is noted at the bifurcation extending into the proximal internal carotid artery.. The vertebral artery is patent demonstrating antegrade flow. The left ECA demonstrates a marked stenosis with peak systolic velocity of under 291 cm/s. MRI: There is high signal on the diffusion-weighted images which is isointense on the ADC map involving the left temporal lobe, and without significant mass effect, suggesting subacute ischemia in this locale. Dilatation of the lateral and third ventricles slightly out of proportion to the sulcal prominence is stable with respect to 06/17/2016 as is the T2 prolongation along the lateral ventricular margins. Stable right middle cranial fossa arachnoid cyst with surrounding gliotic change in the right temporal lobe. Assessment/Plan Assessment: Stroke, resolution of most clinical symptoms within 30 minutes or so but persisting zone of diffusion signal change in the left temporal lobe on MRI and occlusion of the left ICA. Non-critical stenosis of the right ICA Normal pressure hydrocephalus which responded to lumbar puncture 2 weeks ago, mental status reportedly improved significantly. Unclear to what degree this is responsible for her apparent dementia versus a degenerative condition such as Alzheimer's Arachnoid cyst, incidental finding. Recommendations: Echocardiogram, rule out potential source of embolism into the left internal carotid Add aspirin 81 MG EC daily Increase atorvastatin to 80 mg daily Blood pressure running in the upper 120s and 130s systolic, avoid any further drop in BP, may need fluid support Usual stroke protocol, swallowing evaluation, stroke education, gradual increase in activity. Contact Dr. Martinez the patient's own neurologist to coordinate further treatment of her hydrocephalus. A [employer] ATTENDANT shunt is indicated but should probably be postponed 4 to 6 weeks after the acute stroke Consult Acknowledgment - Thank you for your consult request.
--- NOTE | 2016-10-03 18:30 | PN- Student ---
Subjective Subjective: The following note's purpose is to establish a record of the latest Lumbar Puncture procedure findings that were obtained from Ms. Faith Horton. The procedure was perfomed and the CSF was collected at 12:00 AM & 7:00 AM on September 20, 2016. The findings were verified by Dr. Andreas Martinez and the report was done without any complications. Objective Results Results: CSF Analysis (Results from 12:00 AM collection in 09/20/2016): Point of insertion: Spinal needle was inserted into the L4/L5 space. Opening Pressure: 120 mmH2O Color: Colorless Appearance: Clear WBC Count: 1 cells/uL RBC Count: 1 cells/uL Neutrophil %: TNP Glucose, CSF: 71 mg/dL Protein, Total, CSF: 96 mg/dL (Increased; Reference value 15-60) CSF Analysis (Results from 7:00 AM collection in 09/20/2016): Point of insertion: Spinal needle was inserted into the L4/L5 space. Opening Pressure: 120 mmH2O Color: Colorless Appearance: Clear WBC Count: 0 cells/uL RBC Count: 131 cells/uL (Increased; Reference value 0-10) Neutrophil %: TNP Glucose, CSF: 71 mg/dL Protein, Total, CSF: 96 mg/dL (Increased; Reference value 15-60)
--- NOTE | 2016-10-03 19:39 | Cons- Cardiology ---
General Information and HPI Consulting Request Date of Consult: 10/03/16 Requested By: RAHUL GUERRERO MD Reason for Consult: Possible TIA History of Present Illness: The patient is a 71-year-old female with history of hypertension, hyperlipidemia , depression, dementia, possible normal pressure hydrocephalus. She presents with worsening neurologic symptoms. She was running an errand with her at the grocery store in the morning when her speech was noted to be incoherent. She was not able to walk. Her hands were fixed in a contracted position. She was noted to be staring off into space. The episode lasted approximately 30-40 minutes before resolving spontaneously. She didn't lose consciousness. She had no obvious seizure activity. At baseline she has slurred speech and a gait difficulty. She walks independently without a cane or walker. She has had no chest pain. No shortness of breath. No palpitations. The patient does not recall why she is in the hospital. No syncope. No lightheadedness or dizziness. No nausea or vomiting. No diaphoresis. The patient is being considered for possible MERCHANDISING REPRESENTATIVE shunt. Allergies/Medications Allergies: Coded Allergies: No Known Drug Allergies (10/03/16) Home Med List: Donepezil HCl (Donepezil HCl Odt) 10 MG TAB.RAPDIS 10 MG PO DAILY MOOD STABILITY (Reported) Lisinopril/Hydrochlorothiazide (Lisinopril-Hctz 10-12.5 MG Tab) 10 MG-12.5 MG TABLET 1 TAB PO DAILY BP (Reported) Paroxetine HCl 20 MG TABLET 1 TAB PO DAILY MENTAL HEALTH (Reported) Simvastatin (Simvastatin*) 40 MG TABLET 1 TAB PO QPM CHOLESTEROL (Reported) Current Medications: Current Medications Sig/Monica Start time Last Medication Dose Route Stop Time Status Admin Aspirin 81 MG DAILY 10/04 1000 AC PO Aspirin 0 .STK-MED ONE 10/03 1423 DC PO Aspirin 325 MG DAILY 10/03 1400 DC 10/03 PO 1427 Atorvastatin Calcium 80 MG 1700 10/03 1700 AC 10/03 PO 1751 Donepezil HCl 10 MG DAILY 10/03 1422 AC 10/03 PO 1751 Heparin Sodium 5,000 UNIT Q8 10/03 1745 AC 10/03 (Porcine) SC 1752 Hydrochlorothiazide 12.5 MG DAILY 10/03 1424 DC PO Lisinopril 10 MG DAILY 10/03 1423 DC PO Paroxetine HCl 20 MG DAILY 10/03 1423 AC 10/03 PO 1751 Review of Systems Review of Systems: No rash. No fever. No chills. All other systems were reviewed, and were noted to be negative. Past History Travel History Traveled to [place] past 21 day No Medical History Blood Transfusion Hx: No Cardiovascular: hypertension, hyperlipidemia Psychiatric: depression Surgical History Surgical History: non-contributory Family History Family History Reviewed? Family history was reviewed with the patient, and there are no issues contributin to the current presentation. Psychosocial History Where Do You Live? Home Who Do You Live With? spouse Smoking Status: Current Everyday Smoker ETOH Use: denies use Illicit Drug Use: denies illicit drug use Functional Ability Ambulation: independent Exam & Diagnostic Data Vital Signs and I&O Vital Signs Date Time Temp Pulse Resp B/P Pulse O2 O2 Flow FiO2 Ox Delivery Rate 10/03 1644 Room Air 10/03 1625 98.3 68 18 128/82 99 Room Air 10/03 1419 98.0 60 18 136/62 100 Room Air 10/03 1254 97.9 58 18 127/59 100 Nasal 2.0L Cannula 10/03 1154 96 Room Air 10/03 1040 97.8 71 18 132/81 100 Room Air Intake & Output 10/03 1600 10/03 0800 10/03 0000 10/02 1600 10/02 0800 10/02 0000 Intake Total Output Total Balance Patient 176 lb Weight Physical Exam: Gen: The patient is in no acute distress HEENT: Normal nose, ears, and oropharynx. Pupils equal bilaterally. Conjunctiva normal. Neck: Supple with no JVD, no masses, and no thyromegaly Lungs: Clear to auscultation with normal respiratory effort Heart: RRR, S1, S2, no murmurs. No peripheral edema, 2+ pulses in the lower extremities bilaterally Abdomen: Soft, nontender, no masses. No hepatomegaly. No splenomegaly Extremities: No clubbing or cyanosis. Normal muscle strength in the upper and lower extremities Skin: Normal skin turgor with no skin ulcers or lesions noted. Neuro: Cranial nerves intact. Sensation intact Psych: Alert and oriented 3 with depressed affect Labs/Rodo Results: Laboratory Tests 10/03 10/03 10/03 1740 1353 1223 Chemistry Lactic Acid Cancelled Troponin I (< 0.11 ng/ml) < 0.01 Urines Urine Color (YEL,AMB,STR) YEL Urine Clarity (CLEAR) CLEAR Urine pH (5.0 - 8.0) 6.0 Ur Specific [place] (1.001 - 1.035) 1.025 Urine Protein (NEG,<30 MG/DL) TRACE H Urine Ketones (NEG) NEG Urine Nitrite (NEG) NEG Urine Bilirubin (NEG) NEG Urine Urobilinogen (0.1 - 1.0 EU/dl) 0.2 Ur Leukocyte Esterase (NEG) SMALL H Ur Microscopic SEDIMENT EXAMINED Urine RBC (0 - 5 /HPF) 1-3 Urine WBC (0 - 2 /HPF) RARE Ur Epithelial Cells (NONE,FEW) FEW Urine Bacteria (NEG/NONE) FEW H Urine Hemoglobin (NEG) NEG Urine Glucose (N MG/DL) NEG 10/03 1125 Chemistry Sodium (137 - 145 mmol/L) 139 Potassium (3.5 - 5.1 mmol/L) 3.7 Chloride (98 - 107 mmol/L) 99 Carbon Dioxide (22 - 30 mmol/L) 34 H Anion Gap (5 - 16) 7 BUN (7 - 17 mg/dL) 9 Creatinine (0.5 - 1.0 mg/dL) 0.9 Estimated GFR (>60 ml/min) > 60 BUN/Creatinine Ratio (7 - 25 %) 10.0 Glucose (65 - 99 mg/dL) 94 Lactic Acid (0.7 - 2.1 mmol/L) 0.9 Calcium (8.4 - 10.2 mg/dL) 9.3 Troponin I (< 0.11 ng/ml) < 0.01 Vitamin B12 (239 - 931 pg/mL) > 1000 H TSH (0.270 - 4.200 uIU/mL) 1.480 Free T4 (0.78 - 2.44 ng/dL) 0.96 Coagulation PT (9.4 - 12.5 SEC) 10.2 INR (0.90 - 1.19) 0.97 APTT (25 - 37 SEC) 30 Hematology CBC w Diff NO MAN DIFF REQ WBC (4.8 - 10.8 /CUMM) 5.5 RBC (4.20 - 5.40 /CUMM) 4.07 L Hgb (12.0 - 16.0 G/DL) 12.3 Hct (37 - 47 %) 37.0 MCV (81.0 - 99.0 FL) 91.1 MCH (27.0 - 31.0 PG) 30.3 RDW (11.5 - 14.5 %) 13.0 Plt Count (130 - 400 /CUMM) 178 MPV (7.4 - 10.4 FL) 9.0 Gran % (42.2 - 75.2 %) 59.1 Lymphocytes % (20.5 - 51.1 %) 29.5 Monocytes % (1.7 - 9.3 %) 8.1 Eosinophils % (0 - 5 %) 1.8 Basophils % (0.0 - 2.0 %) 1.5 Absolute Granulocytes (1.4 - 6.5 /CUMM) 3.3 Absolute Lymphocytes (1.2 - 3.4 /CUMM) 1.6 Absolute Monocytes (0.10 - 0.60 /CUMM) 0.4 Absolute Eosinophils (0.0 - 0.7 /CUMM) 0.1 Absolute Basophils (0.0 - 0.2 /CUMM) 0.1 PUBS MCHC (33.0 - 37.0 G/DL) 33.3 Diagnostic Data EKG Results EKG tracing is reviewed, and reveals normal sinus rhythm at 65, nonspecific repolarization amount Other Results Cardiac Doppler study 10/03/16: Occluded left internal carotid artery and findings on the right consistent with a 50-79% diameter reduction involving the proximal right internal carotid artery. MRI head 10/03/16: There is high signal on the diffusion-weighted images which is isointense on the ADC map involving the left temporal lobe, and without significant mass effect, suggesting subacute ischemia in this locale. Dilatation of the lateral and third ventricles slightly out of proportion to the sulcal prominence is stable with respect to 06/17/2016 as is the T2 prolongation along the lateral ventricular margins. Stable right middle cranial fossa arachnoid cyst with surrounding gliotic change in the right temporal lobe. 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 CT head: 1. No acute intracranial hemorrhage. 2. No evidence of acute/subacute cerebral or cerebellar infarction. 3. Moderate microvascular ischemic disease. 4. Disproportionate enlargement of the ventricular system in relation to the degree of sulcal enlargement suggesting the presence of normal pressure hydrocephalus. Clinical correlation is recommended. Assessment/Plan Assessment/Plan Assessment: 1. Normal pressure hydrocephalus 2. Left internal carotid artery occlusion 2. Possible TIA versus stroke Plan: * Echocardiogram to rule out source of embolism * Aspirin 81 mg daily * Increase atorvastatin to 80 mg daily. * Follow neurology and basilar surgery recommendations. * Continue current dosages of lisinopril and HCTZ. Avoid overly rapid blood pressure drops Consult Acknowledgment - Thank you for your consult request.
--- NOTE | 2016-10-03 19:40 | CT SCAN REPORT ---
CT ANGIOGRAM NECK CLINICAL INFORMATION: TIA. COMPARISON: Carotid ultrasound performed earlier today. TECHNIQUE: Test bolus sequences followed by administration of 120 mL of Optiray 320 intravenous contrast. Helical imaging was performed in the axial plane of the neck. The data was processed at the imaging technologist workstation for generation of MIP sequences. Three-dimensional volume rendered reformatted images were also generated at an offline 3-D workstation. FINDINGS: There is a 3 great vessel branch configuration off of the aortic arch. There is fairly extensive atherosclerotic plaque along the periphery of the aortic arch and of the great vessel origins. There is a 60-70% stenosis involving the left subclavian artery origin secondary to soft atherosclerotic plaque. There is an irregular severe stenosis of the left axillary artery. There is likely 50% luminal narrowing of the left common carotid artery origin, limitedly assessed by artifact obscuring this area. There is a severe stenosis involving the right axillary artery. The right vertebral artery is dominant. The vertebral arteries remain widely patent throughout their course. The vertebrobasilar system remains widely patent intracranially. The right common carotid artery is widely patent. There is soft lipid rich atherosclerotic plaque at the right carotid bifurcation resulting in an approximately 60% stenosis by NASCET criteria. There is lipid rich atherosclerotic plaque along the course of the left common carotid artery resulting in 50-60% luminal narrowing of the vessel. There is extensive lipid rich atherosclerotic plaque at the left carotid bifurcation resulting in occlusion of the left internal carotid artery just beyond its origin. There is intracranial reconstitution of the left internal carotid artery, greatest at the level of the ophthalmic segment with the left [place] primarily reconstituted by the contralateral side. 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 There are severe stenoses at the origins of the left M2 middle cerebral artery branches and there is an occluded left sylvian MCA branch. There is soft tissue along the right lateral margin of the trachea at the T2 level that could reflect secretions or an intraluminal lesion for which a chest CT in 2 weeks time is recommended to document resolution. Upper lungs are clear. The thyroid gland, the parotid glands, and the semitubular glands are unremarkable. There is no cervical lymphadenopathy. Lingual tonsillar hypertrophy partially effaces the vallecula bilaterally. There is a partially imaged arachnoid cyst within the right middle cranial fossa resulting in mass effect on the right temporal pole. Remaining intracranial findings including a subacute left temporal lobe infarct are better demonstrated on today's earlier MRI. There is advanced cervical spondylosis with large disc osteophyte complexes at the C3-C4, C4-C5, and C5-C6 levels suspected to result in moderate to severe central canal stenosis at these levels. IMPRESSION: - The left internal carotid artery appears occluded just beyond its origin as noted on the recent carotid ultrasound. There is reconstitution of the intracranial left internal carotid artery, greatest at the level of the ophthalmic segment. Lipid rich atherosclerotic plaque also results in 50-60% luminal narrowing at the left common carotid artery origin and of the mid left common carotid artery. - There are severe stenoses at the origins of the left M2 middle cerebral artery branches and there is an occluded left sylvian MCA branch. - Soft lipid rich atherosclerotic plaque results in a 60% stenosis of the right carotid bulb by NASCET criteria. - There is a 60-70% stenosis involving the left subclavian artery origin secondary to soft atherosclerotic plaque. There is an irregular severe stenosis of the left axillary artery. There is also a severe stenosis involving the right axillary artery. 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 - There is a partially imaged arachnoid cyst within the right middle cranial fossa resulting in mass effect on the right temporal pole. Remaining intracranial findings including ventriculomegaly and a subacute left temporal lobe infarct are better demonstrated on today's earlier MRI. Please see that report for further details. - There is soft tissue along the right lateral margin of the trachea at the T2 level that could reflect secretions or an intraluminal lesion for which a chest CT in 2 weeks time is recommended to document resolution. If this finding does not resolve, direct visualization would be recommended. - There is advanced cervical spondylosis with large disc osteophyte complexes at the C3-C4, C4-C5, and C5-C6 levels suspected to result in moderate to severe central canal stenosis at these levels.
[2016-10-04 01:05] VITALS: BP 118/78
--- NOTE | 2016-10-04 07:20 | PN- Housestaff ---
OXANA ORTIZ,JOE 10/04/16 0720: Subjective Follow-up For: subacute ischemia of left temporal lobe Complaints: no complaints Tele-Events Since Last Visit: Normal sinus rhythm with heart rate between 65, Subjective: Recently seen and examined at the bedside. She was oriented to time, place and person. She was having tremors in his upper extremity, denies of any nausea, vomiting, headache. She was able to walk with a walker. Review of Systems Constitutional: Denies: no symptoms. EENTM: Denies: no symptoms. Cardiovascular: Denies: no symptoms. Respiratory: Denies: no symptoms. Gastrointestinal: Denies: no symptoms. Genitourinary: Denies: no symptoms. Musculoskeletal: Denies: no symptoms. Skin: Denies: no symptoms. Neurological/Psychological: Denies: no symptoms. Objective Last 24 Hrs of Vital Signs/I&O Vital Signs Date Time Temp Pulse Resp B/P Pulse O2 O2 Flow FiO2 Ox Delivery Rate 10/04 0836 97.9 66 18 126/78 99 Room Air 10/04 0105 98.5 71 18 118/78 97 Room Air 10/03 2031 Room Air 10/03 1644 Room Air 10/03 1625 98.3 68 18 128/82 99 Room Air Intake & Output 10/04 1600 10/04 0800 10/04 0000 Intake Total 1105 100 360 Output Total Balance 1105 100 360 Intake, IV 625 20 Intake, Oral 480 100 340 Number 1 Bowel Movements Patient 48.988 kg Weight Physical Exam General Appearance: Alert, Oriented X3, Cooperative Skin: No Rashes, No Breakdown HEENT: Atraumatic, PERRLA, EOMI Cardiovascular: Normal S1, Normal S2 Lungs: Clear to Auscultation, Normal Air Movement Abdomen: Soft, No Tenderness Neurological: Normal Speech, TREMORS IN BOTH UPPER EXTREMITY, WALKING WITH A WALKER Extremities: No Clubbing, No Cyanosis, No Edema Vascular: Normal Pulses, Pulses Symmetrical Current Medications: Current Medications Sig/Monica Start time Last Medication Dose Route Stop Time Status Admin Aspirin 81 MG DAILY 10/04 1000 AC 10/04 PO 0929 Aspirin 325 MG DAILY 10/03 1400 DC 10/03 PO 1427 Atorvastatin Calcium 80 MG 1700 10/03 1700 AC 10/03 PO 1751 Donepezil HCl 10 MG DAILY 10/03 1422 AC 10/04 PO 0929 Heparin Sodium 5,000 UNIT Q8 10/03 1745 AC 10/04 (Porcine) SC 1243 Hydrochlorothiazide 12.5 MG DAILY 10/03 1424 DC PO Lisinopril 10 MG DAILY 10/03 1423 DC PO Paroxetine HCl 20 MG DAILY 10/03 1423 AC 10/04 PO 0929 Sodium Chloride 1,000 ML Q8H 10/04 0945 AC 10/04 IV 10/04 1744 1005 Last 24 Hrs of Lab/Rodo Results Last 24 Hrs of Labs/Mics: Laboratory Tests 10/03/16 2305: Troponin I < 0.01 10/03/16 1740: Troponin I < 0.01, Triglycerides 251 H, Cholesterol 242 H, LDL Cholesterol, Calc 128, HDL Cholesterol 64 H, Cholesterol/HDL Ratio 4 Orders ECHO Findings: CONCLUSIONS Normal left ventricular ejection fraction visually estimated at > 60%. Normal left ventricular wall motion. Trace mitral regurgitation. Mild tricuspid regurgitation. Assessment/Plan Assessment: Patient is 71-year-old female with PMH of hypertension, hyperlipidemia, depression, dementia, enlarged ventricles ? normal pressure hydrocephalus, presented for worsening neurological symptoms. She was running errand with her at the grocery store this morning, when her speech was noted to be incoherent, she wasn't able to walk, her hands were fixed in a contracted position, with a "zombie look" staring in space. The episode lasted for about 30 -45 minutes and resolved spontaneously. She did not lose consciousness and no seizure like activities noted. Vital signs-temperature 97.9, pulse 66, respiratory rate 18, blood pressure 126/ 78, SPO2 99% on room air Plan - Subacute left temporal lobe infarct - We'll continue aspirin and atorvastatin in high doses We will follow neurologist recommendation PT/OT Hypertension We will follow cardiology consult We'll continue all home medication Diet -heart healthy diet DVT prophylaxis-heparin/ALP S CODE STATUS-full code Problem List: 1. Arachnoid cyst 2. Left temporal lobe infarction Pain Ratin Pain Location: none Pain Goal: Remain pain free Pain Plan: mild Tomorrow's Labs & Rationales: none DVT/Prophylaxis: mechanical, pharmacological RAHUL GUERRERO MD 10/04/16 1019: Attending Review Statement Attending Statement Attending MD Statement: examined this patient, discuss w/resident/PA/CONTROL ROOM SUPERVISOR, agreed w/resident/PA/CONTROL ROOM SUPERVISOR, reviewed EMR data (avail) Attending Assessment/Plan: 71F PMH HTN, HLD, normal pressure hydrocephalus s/p serial LPs presenting with 30 minute episode of aphasia, muscle contracture, and confusion. Patient is back to baseline currently. Poor memory of incident. No similar prior incidents. Unchanged today. Neuro exam still normal. Carotid doppler and CTA neck show multiple areas of stenosis with left ICA occlusion and sylvian branch occlusion. MRI head shows left temporal subacute infarction. Vitals stable, labs reviewed. Plan - Continue on telemetry - Continue to hold anti-hypertensive. Will give IV fluids to maintain BP for cerebral perfusion - Obtain vascular consult - Follow neurology recommendations - EEG - ASA 81mg and Atorvastatin 80mg - Follow up echocardiogram - Continue home medications - Cardiology consult (T-wave inversions on EKG, new, but last EKG was from 2003) - DVT PPx
--- NOTE | 2016-10-04 08:34 | ECHOCARDIOGRAM REPORT ---
KAITLYN MCGRAW Age: 71 : 1945 Gender: F Exam Date: 10/03/2016 19:43 Exam Location: [address] Ht (in): 62 Wt (lb): 175 BSA: 1.90 BP: 127 / 59 Ordering Physician: SRUTHI CONWAY, Referring Physician: Alexander Lau MD Technologist: Naina Moulton [facility] Room Number: [id number] Indications: STROKE Rhythm: Sinus Technical Quality: Good FINDINGS Left Ventricle Normal size left ventricle. Normal left ventricular wall thickness. Normal left ventricular ejection fraction visually estimated at > 60%. Normal left ventricular wall motion. Right Ventricle Normal right ventricular size and function. Right Atrium Normal right atrial size. Left Atrium Normal left atrial size. Mitral Valve Mild mitral annular calcification. Trace mitral regurgitation. Aortic Valve Diffuse thickening (sclerosis) of the aortic valve cusps without reduced excursion. No aortic stenosis. No aortic regurgitation. Tricuspid Valve Tricuspid valve not well visualized, grossly normal. Mild tricuspid regurgitation. No evidence of pulmonary hypertension. Pulmonic Valve Pulmonic valve not well visualized, grossly normal. Pericardium No pericardial effusion. Great Vessels Normal size aortic root. CONCLUSIONS Normal left ventricular ejection fraction visually estimated at > 60%. Normal left ventricular wall motion. Trace mitral regurgitation. Mild tricuspid regurgitation. Alexander Lau M.D. (Electronically Signed) Final Date: 04 October 2016 08:34 MEASUREMENTS (Male / Female) Normal Values 2D ECHO LV Diastolic Diameter PLAX 3.5 cm 4.2 - 5.9 / 3.9 - 5.3 cm LV Systolic Diameter PLAX 1.9 cm 2.1 - 4.0 cm LV Fractional Shortening PLAX 45.7 % 25 - 46 % LV Ejection Fraction 2D Teich 78.0 % IVS Diastolic Thickness 1.0 cm LVPW Diastolic Thickness 1.1 cm LV Relative Wall Thickness 0.6 RV Internal Dim ED PLAX 2.5 cm 1.9 - 3.8 cm LVOT Diameter 2.0 cm Aortic Root Diameter 2.5 cm LA Systolic Diameter LX 2.7 cm 3.0 - 4.0 / 2.7 - 3.8 cm LA Volume 12.0 cm 18 - 58 / 22 - 52 cm Ascending Aorta Diameter 2.8 cm DOPPLER AV Peak Velocity 143.0 cm/s AV Peak Gradient 8.2 mmHg AV Mean Velocity 98.1 cm/s AV Mean Gradient 4.0 mmHg AV Velocity Time Integral 35.0 cm LVOT Peak Velocity 69.2 cm/s LVOT Peak Gradient 1.9 mmHg LVOT Mean Velocity 46.8 cm/s LVOT Mean Gradient 1.0 mmHg LVOT Velocity Time Integral 20.5 cm LVOT Stroke Volume 64.4 cm AV Area Cont Eq vti 1.8 cm AV Area Cont Eq pk 1.5 cm MV Peak Velocity 79.0 cm/s MV Peak Gradient 2.5 mmHg MV Mean Velocity 40.5 cm/s MV Mean Gradient 1.0 mmHg Mitral E Point Velocity 62.2 cm/s Mitral A Point Velocity 74.5 cm/s Mitral E to A Ratio 0.8 MV PHT Velocity 63.0 cm/s MV Deceleration Angelina 191.0 cm/s MV Pressure Half Time 99.0 ms MV Area PHT 2.2 cm MV Deceleration Time 183.0 ms TR Peak Velocity 231.0 cm/s TR Peak Gradient 21.3 mmHg Right Atrial Pressure 5.0 mmHg Pulmonary Artery Systolic Pressu 26.3 mmHg Right Ventricular Systolic Press 26.3 mmHg PV Peak Velocity 79.3 cm/s PV Peak Gradient 2.5 mmHg PV Mean Velocity 55.0 cm/s PV Mean Gradient 1.0 mmHg PV Velocity Time Integral 18.5 cm LV E' Lateral Velocity 7.4 cm/s Mitral E to LV E' Lateral Ratio 8.4 LV E' Septal Velocity 6.8 cm/s Mitral E to LV E' Septal Ratio 9.1
[2016-10-04 08:36] VITALS: BP 126/78
--- NOTE | 2016-10-04 10:46 | PN- Cardiology ---
Subjective Subjective: Feeling well. No chest pain. No shortness of breath. No diaphoresis. No palpitations. Objective Vital Signs and I&Os Vital Signs Date Time Temp Pulse Resp B/P Pulse O2 O2 Flow FiO2 Ox Delivery Rate 10/04 0836 97.9 66 18 126/78 99 Room Air 10/04 0105 98.5 71 18 118/78 97 Room Air 10/03 2031 Room Air 10/03 1644 Room Air 10/03 1625 98.3 68 18 128/82 99 Room Air 10/03 1419 98.0 60 18 136/62 100 Room Air 10/03 1254 97.9 58 18 127/59 100 Nasal 2.0L Cannula 10/03 1154 96 Room Air Intake & Output 10/04 1600 10/04 0800 10/04 0000 10/03 1600 10/03 0800 10/03 0000 Intake Total 100 360 Output Total Balance 100 360 Intake, IV 20 Intake, Oral 100 340 Patient 108 lb 176 lb Weight Physical Exam: Gen: The patient is in no acute distress HEENT: Normal nose, ears, and oropharynx. Pupils equal bilaterally. Conjunctiva normal. Neck: Supple with no JVD, no masses, and no thyromegaly Lungs: Clear to auscultation with normal respiratory effort Heart: RRR, S1, S2, no murmurs. No peripheral edema, 2+ pulses in the lower extremities bilaterally Abdomen: Soft, nontender, no masses. No hepatomegaly. No splenomegaly Extremities: No clubbing or cyanosis. Normal muscle strength in the upper and lower extremities Skin: Normal skin turgor with no skin ulcers or lesions noted. Current Medications: Current Medications Sig/Monica Start time Last Medication Dose Route Stop Time Status Admin Aspirin 81 MG DAILY 10/04 1000 AC 10/04 PO 0929 Aspirin 0 .STK-MED ONE 10/03 142 DC PO Aspirin 325 MG DAILY 10/03 1400 DC 10/03 PO 1427 Atorvastatin Calcium 80 MG 1700 10/03 1700 AC 10/03 PO 1751 Donepezil HCl 10 MG DAILY 10/03 1422 AC 10/04 PO 0929 Heparin Sodium 5,000 UNIT Q8 10/03 1745 AC 10/04 (Porcine) SC 0600 Hydrochlorothiazide 12.5 MG DAILY 10/03 1424 DC PO Lisinopril 10 MG DAILY 10/03 142 DC PO Paroxetine HCl 20 MG DAILY 10/03 1423 AC 10/04 PO 0929 Sodium Chloride 1,000 ML Q8H 10/04 0945 AC 10/04 IV 10/04 1744 1005 Results Last 48 Hrs of Labs/Mics: Laboratory Tests 10/03/16 2305: Troponin I < 0.01 10/03/16 1740: Troponin I < 0.01, Triglycerides 251 H, Cholesterol 242 H, LDL Cholesterol, Calc 128, HDL Cholesterol 64 H, Cholesterol/HDL Ratio 4 10/03/16 1353: Lactic Acid Cancelled 10/03/16 1223: Urine Color YEL, Urine Clarity CLEAR, Urine pH 6.0, Ur Specific Andrews 1.025, Urine Protein TRACE H, Urine Ketones NEG, Urine Nitrite NEG, Urine Bilirubin NEG, Urine Urobilinogen 0.2, Ur Leukocyte Esterase SMALL H, Ur Microscopic SEDIMENT EXAMINED, Urine RBC 1-3, Urine WBC RARE, Ur Epithelial Cells FEW, Urine Bacteria FEW H, Urine Hemoglobin NEG, Urine Glucose NEG 10/03/16 1125: Anion Gap 7, Estimated GFR > 60, BUN/Creatinine Ratio 10.0, Glucose 94, Lactic Acid 0.9, Calcium 9.3, Troponin I < 0.01, Vitamin B12 > 1000 H, TSH 1.480, Free T4 0.96, PT 10.2, INR 0.97, APTT 30, CBC w Diff NO MAN DIFF REQ, RBC 4.07 L, MCV 91.1, MCH 30.3, RDW 13.0, MPV 9.0, Gran % 59.1, Lymphocytes % 29.5, Monocytes % 8.1, Eosinophils % 1.8, Basophils % 1.5, Absolute Granulocytes 3.3, Absolute Lymphocytes 1.6, Absolute Monocytes 0.4, Absolute Eosinophils 0.1, Absolute Basophils 0.1, PUBS MCHC 33.3 Recent Imaging Studies: CT angiogram of the neck: - The left internal carotid artery appears occluded just beyond its origin as noted on the recent carotid ultrasound. There is reconstitution of the intracranial left internal carotid artery, greatest at the level of the ophthalmic segment. Lipid rich atherosclerotic plaque also results in 50-60% luminal narrowing at the left common carotid artery origin and of the mid left common carotid artery. - There are severe stenoses at the origins of the left M2 middle cerebral artery branches and there is an occluded left sylvian MCA branch. - Soft lipid rich atherosclerotic plaque results in a 60% stenosis of the right carotid bulb by NASCET criteria. - There is a 60-70% stenosis involving the left subclavian artery origin secondary to soft atherosclerotic plaque. There is an irregular severe stenosis of the left axillary artery. There is also a severe stenosis involving the right axillary artery. 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 - There is a partially imaged arachnoid cyst within the right middle cranial fossa resulting in mass effect on the right temporal pole. Remaining intracranial findings including ventriculomegaly and a subacute left temporal lobe infarct are better demonstrated on today's earlier MRI. Please see that report for further details. - There is soft tissue along the right lateral margin of the trachea at the T2 level that could reflect secretions or an intraluminal lesion for which a chest CT in 2 weeks time is recommended to document resolution. If this finding does not resolve, direct visualization would be recommended. - There is advanced cervical spondylosis with large disc osteophyte complexes at the C3-C4, C4-C5, and C5-C6 levels suspected to result in moderate to severe central canal stenosis at these levels. Echocardiogram 10/04/16: Normal left ventricular ejection fraction visually estimated at > 60%. Normal left ventricular wall motion. Trace mitral regurgitation. Mild tricuspid regurgitation. Assessment/Plan Assessment/Plan Assessment: 1. Normal pressure hydrocephalus 2. Left internal carotid artery occlusion 3. Possible TIA versus stroke 4. No cardiac source of embolism seen on echocardiogram. 5. Hypertension, stable off medications Plan: * Keep off hypertension medications for now, and continue to monitor blood pressure * Continue atorvastatin * Continue aspirin Continue telemetry? Yes
[2016-10-04 15:30] VITALS: BP 128/78
[2016-10-05 00:45] VITALS: BP 160/92
--- NOTE | 2016-10-05 08:29 | PN- Housestaff ---
See Addendum Subjective Follow-up For: subacute ischemia of left temporal lobe Complaints: no complaints Tele-Events Since Last Visit: Normal sinus rhythm, no any overnight events Subjective: Recently seen and examined at the bedside. She was having tremors in his upper extremity, denies of any nausea, vomiting, headache. She was able to walk with a walker. Review of Systems Constitutional: Denies: no symptoms. Cardiovascular: Denies: chest pain. Respiratory: Denies: short of breath. Gastrointestinal: Denies: abdominal pain. Genitourinary: Denies: dysuria. Musculoskeletal: Denies: back pain. Objective Last 24 Hrs of Vital Signs/I&O Vital Signs Date Time Temp Pulse Resp B/P Pulse O2 O2 Flow FiO2 Ox Delivery Rate 10/05 1600 97.8 72 20 102/60 98 Room Air Intake & Output 10/06 1600 10/06 0800 10/06 0000 Intake Total 225 Output Total Balance 225 Intake, Oral 225 Physical Exam General Appearance: Alert, No Acute Distress Skin: No Rashes, No Breakdown Cardiovascular: Normal S1, Normal S2 Lungs: Clear to Auscultation, Normal Air Movement Abdomen: Soft, No Tenderness Neurological: Normal Speech Extremities: upper limb tremors Vascular: Normal Pulses, Pulses Symmetrical Assessment/Plan Assessment: Patient is 71-year-old female with PMH of hypertension, hyperlipidemia, depression, dementia, enlarged ventricles ? normal pressure hydrocephalus, presented for worsening neurological symptoms. She was running errand with her at the grocery store this morning, when her speech was noted to be incoherent, she wasn't able to walk, her hands were fixed in a contracted position, with a "zombie look" staring in space. The episode lasted for about 30 -45 minutes and resolved spontaneously. She did not lose consciousness and no seizure like activities noted. Vital signs-temperature 97.9, pulse 66, respiratory rate 18, blood pressure 126/ 78, SPO2 99% on room air Plan - Discharge today. Subacute left temporal lobe infarct - Discussed with Dr Abdalla, over phone ,according to her opinion patient doesnt require any active intervention and recoomended medical managment as advised by neurologist. we stopped aspirin and started her on Plavix and atorvastatin in high doses We will follow neurologist recommendation We also tried to contact Dr Martinez but not able to hold with him. 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 PT/OT Hypertension - We will follow cardiology consult, according to them patient is clinically stable and can be discharge and follow as an outpatient. We'll continue all home medication Diet -heart healthy diet DVT prophylaxis-heparin/ALP S CODE STATUS-full code Problem List: 1. Left temporal lobe infarction 2. Arachnoid cyst 3. Normal pressure hydrocephalus Pain Ratin Pain Location: not applicable Pain Goal: Remain pain free Pain Plan: mild Tomorrow's Labs & Rationales: none DVT/Prophylaxis: mechanical, pharmacological
[2016-10-05 08:30] VITALS: BP 120/50; BP 160/80
[2016-10-05] MEDS ORDERED: ATORVASTATIN CA80 M1 PO (10:59)
--- NOTE | 2016-10-05 11:05 | Patient Discharge Instructions ---
Discharge Instructions General Discharge Information You were seen/treated for: stroke Special Instructions: please follow up with Dr pedraza as an outpatient for futher management of stroke and EEG. please follow up with your PCP with in a week of discharge. You will need SCALER PACKER shunt in future and is postponed for next 4 to 6 weeks because of acute stroke Diet Continue normal diet: No Recommended Diet: Heart Healthy Activity Full Activity/No Limits: No (as tolerated) Acute Coronary Syndrome Inclusion Criteria At DC or during hospital stay patient has or had the following: ACS DIAGNOSIS No Discharge Core Measures Meds if any: Prescribed or Continued at Discharge Meds if any: NOT Prescribed or Continued at Discharge Congestive Heart Failure Inclusion Criteria At DC or during hospital stay patient has or had the following: CHF DIAGNOSIS No Discharge Core Measures Meds if any: Prescribed or Continued at Discharge Meds if any: NOT Prescribed or Continued at Discharge Cerebrovascular accident Inclusion Criteria At DC or during hospital stay patient has or had the following: CVA/TIA Diagnosis Yes Discharge Core Measures Meds if any: Prescribed or Continued at Discharge Meds if any: NOT Prescribed or Continued at Discharge Venous thromboembolism Inclusion Criteria VTE Diagnosis No VTE Type NONE VTE Confirmed by (Test) NONE Discharge Core Measures - Per Current guidelines, there needs to be overlap - treatment for the first 5 days of Warfarin therapy. - If discharged on Warfarin prior to 5 days of - overlap therapy, the patient will need to be - assessed for post discharge needs including - *Post discharge parental anticoagulation - *Warfarin and/or parental anticoagulation education - *Follow up date to check INR post discharge At least 5 days overlap therapy as Inpatient No Meds if any: Prescribed or Continued at Discharge Note: Overlap Therapy is Warfarin and Anticoagulant Meds if any: NOT Prescribed or Continued at Discharge
--- NOTE | 2016-10-05 14:26 | PN- Cardiology ---
Subjective Subjective: Cardiac status stable. No obvious new issues. No specific complaints. Pending discharge Objective Vital Signs and I&Os Vital Signs Date Time Temp Pulse Resp B/P Pulse O2 O2 Flow FiO2 Ox Delivery Rate 10/05 0830 98.0 82 20 160/80 97 Room Air 10/05 0800 Room Air 10/05 0045 97.7 78 18 160/92 96 Room Air 10/04 1530 98.4 78 20 128/78 96 Room Air Intake & Output 10/05 1600 10/05 0800 10/05 0000 10/04 1600 10/04 0800 10/04 0000 Intake Total 480 60 140 1105 100 360 Output Total 250 Balance 480 60 -110 1105 100 360 Intake, IV 10 20 625 20 Intake, Oral 480 50 120 480 100 340 Number 1 1 Bowel Movements Output, Urine 250 Patient 108 lb Weight Current Medications: Current Medications Sig/Monica Start time Last Medication Dose Route Stop Time Status Admin Aspirin 81 MG DAILY 10/04 1000 DC 10/05 PO 0904 Atorvastatin Calcium 80 MG 1700 10/03 1700 AC 10/04 PO 1608 Clopidogrel Bisulfate 75 MG DAILY 10/05 1411 AC PO Donepezil HCl 10 MG DAILY 10/03 1422 AC 10/05 PO 0904 Heparin Sodium 5,000 UNIT Q8 10/03 1745 AC 10/05 (Porcine) SC 1342 Paroxetine HCl 20 MG DAILY 10/03 1423 AC 10/05 PO 0904 Sodium Chloride 1,000 ML Q8H 10/04 0945 DC 10/04 IV 10/04 1744 1005 Results Last 48 Hrs of Labs/Mics: Laboratory Tests 10/03/16 2305: Troponin I < 0.01 10/03/16 1740: Troponin I < 0.01, Triglycerides 251 H, Cholesterol 242 H, LDL Cholesterol, Calc 128, HDL Cholesterol 64 H, Cholesterol/HDL Ratio 4 Assessment/Plan Assessment/Plan Assessment: 1. Normal pressure hydrocephalus 2. Left internal carotid artery occlusion 3. Possible TIA versus stroke 4. Hypertension, stable off medications Recommendations: -Continue current medical regimen -From a cardiac standpoint, the patient appears stable for discharge -Outpatient follow-up with Dr. Lau. Continue telemetry? No
[2016-10-05] MEDS ORDERED: PLAVIX75 M1 PO (14:35)
[2016-10-05] MEDS ORDERED: ASPIRIN81 M4 PO (14:42)
[2016-10-05 16:00] VITALS: BP 102/60
--- NOTE | 2016-10-06 11:07 | Discharge Summary ---
Visit Information Visit Dates Admission Date: 10/03/16 Discharge Date: 10/05/16 Hospital Course Course Attending Physician: RAHUL GUERRERO MD [facility]: Patient is 71-year-old female with PMH of hypertension, hyperlipidemia, depression, dementia, Normal pressure hydrocephalus on serial LP, presented for worsening neurological symptoms. She was running errand with her at the grocery store on 10/03/2016, when her speech was incoherent, she was confused and wasn't able to walk, her hands were fixed in a contracted position, with a "zombie look" staring in space,. The episode lasted for about 30-45 minutes and resolved spontaneously. She did not lose consciousness and no seizure like activities noted. She came to [place] [facility]. At time of presentation she was at baseline without focal neurological findings. Vital signs at the time of admission-temperature 97.8, pulse 71, respiration 18, blood pressure 132/81, SPO2 100% on room air Left temporal lobe infarct - In emergency CT scan of the head was done which didnt showe any acute ischemic changes but did showed moderate microvascular ischemic disease along with normal pressure hydrocephalus. Patient was admitted to telemetry floor for further cardiac and neurological monitoring.We placed the cardiology and neurology consult.Echocardiogram was done which ruled out a cardiac source of embolization to left internal carotid artery. Patient was started on aspirin 81 milligrams along with atorvastatin 80 mgs daily. We did MRI brain which later showed subacute ischemia of left temporal lobe. Carotid doppler was done and showed completely occluded left ICA and 50-79% in Right ICA which we confirmed with CTA. Discussed with vascular surgeon Dr Rothman and she advised that patient doesnt requires surgical intervention at this time and can be managed medically as an out patient.She thinks surgery will not change prognosis. Normal pressure hydrocephalus - According to Dr. Rutherford patient is responding to serial lumbar puncture and last one was 2 weeks ago and, after which mental status improved significantly.He thinks patient may need GEAR TECHNICIAN shunt in future. It cannot be done acutely after the stroke. It was advised that she should follow her neurologist within 4-6 weeks to discuss about it. Allergies: Coded Allergies: No Known Drug Allergies (10/03/16) Disposition Summary Disposition Principal Diagnosis: Occlusion of the left ICA Non-critical stenosis of the right ICA Normal pressure hydrocephalus (Responded to lumbar puncture 2 weeks ago) Additional Diagnosis: Arachnoid cyst (right middle cranial fossa) Hypertension, Hyperlipidemia, Depression, Dementia, Discharge Disposition: home or self care Discharge Instructions General Discharge Information Code Status: Full Code Patient's Diet: heart healthy diet Patient's Activity: as tolerated take all fall precautions Follow-Up Instructions/Appts: Advised to follow up with Dr pedraza as an outpatient for futher management of stroke. Advised to follow up with your PCP with in a week of discharge. Patient will need GEAR TECHNICIAN shunt in future and is postponed for next 4 to 6 weeks because of acute stroke. Medications at Discharge Discharge Medications: Stop taking the following medications: Simvastatin (Simvastatin*) 40 MG TABLET ORAL Every night Qty = 30 Aspirin (Aspirin*) 81 MG TAB.CHEW ORAL DAILY Continue taking these medications: Lisinopril/Hydrochlorothiazide (Lisinopril-Hctz 10-12.5 MG Tab) 10 MG-12.5 MG TABLET 1 Tablet ORAL DAILY Qty = 30 Comments: NOT GIVEN IN HOSPITAL Paroxetine HCl (Paroxetine HCl) 20 MG TABLET 1 Tablet ORAL DAILY Qty = 30 Comments: Last Taken: 10/05/16 Time: 9AM Donepezil HCl (Donepezil HCl Odt) 10 MG TAB.RAPDIS 10 Milligram ORAL DAILY Comments: Last Taken: 10/05/16 Time: 9AM Start taking the following new medications: Atorvastatin Calcium (Atorvastatin Calcium) 80 MG TABLET 80 Milligram ORAL DAILY Qty = 90 No Refills Comments: Last Taken: 10/05/16 Time: 4PM Clopidogrel Bisulfate (Plavix) 75 MG TABLET 75 Milligram ORAL DAILY Qty = 90 No Refills Comments: Last Taken: 10/05/16 Time: 4PM Copies To: FRANKLIN ORTIZ,ADELE Prince; JIMENEZ ORTIZ,M. KRANTHI; YUMIKO ORTIZ,HASEEB Attending MD Review Statement Documenting Attending: RAHUL GUERRERO MD
--- NOTE | 2016-10-06 11:23 | Event Note ---
Event Note Event Note: Discussed with Dr Rothman over phone. Updated the result of CTA, and she advised that patient doesnt requires surgical intervention at this time and can be managed medically. She thinks surgery will not change prognosis.
== END 2016-10-05 19:58 | disposition home health service (06) | DRG 65 ==
LOC: ERH 10:31 → ERHI 13:08 → 1NO 13:08
PROVIDERS: Emergency Medicine; Internal Medicine; ADMIT Internal Medicine
DX: I63.232 Cerebral infarction due to unspecified occlusion or stenosis of left carotid arteries (principal); G91.2 (Idiopathic) normal pressure hydrocephalus; F03.90 Unspecified dementia, unspecified severity, without behavioral disturbance, psychotic disturbance, mood disturbance, and anxiety; I10 Essential (primary) hypertension; E78.5 Hyperlipidemia, unspecified; F32.9 Major depressive disorder, single episode, unspecified; F17.200 Nicotine dependence, unspecified, uncomplicated
CPT/HCPCS: 1NSP; 70551; 36415; 81001; 93005; 93010; 93306; 97110-GO; 97116-GO; 97161-GP; 97165-GO; 97530-GO; J1644; J3490